=== PATIENT | female | born 2005 | race Caucasian/White ===

== ENCOUNTER 2024-11-14 17:29 | Emergency (ER) | payer OTHER ==
[~2024-11-14] VITALS: Ht 162.6 cm; Wt 63.2 kg
[2024-11-14] MEDS ORDERED: NS 100 ML IV SCH (18:41)
[2024-11-14] MEDS ORDERED: Iohexol 300 - 100 ML VIAL IV ONE (18:41)
[2024-11-14 18:48] LABS: URINE APPEARANCE SLIGHTLY CLOUDY (CLEAR); URINE COLOR YELLOW (YELLOW)
[2024-11-14 18:49] LABS: URINE BILIRUBIN 1+ (NEGATIVE); URINE BLOOD 2+ (NEGATIVE); URINE GLUCOSE NEGATIVE (NEGATIVE); URINE KETONE 3+ (NEGATIVE); URINE LEUKOCYTE ESTERASE NEGATIVE (NEGATIVE); URINE NITRATE NEGATIVE (NEGATIVE); URINE PROTEIN(semi-quant) 1+ (NEGATIVE)
[2024-11-14 18:50] LABS: URINE MUCUS PRESENT (NOT PRESENT)
[2024-11-14] MEDS ORDERED: ZOFRAN ODT4 MG PO (19:48)
[2024-11-14 20:06] VITALS: BP 109/68
== END 2024-11-14 20:03 | disposition home or self-care (01) ==
LOC: ED 17:29
PROVIDERS: Nurse Practitioner Family
DX: K52.9 Noninfective gastroenteritis and colitis, unspecified (principal)
CPT/HCPCS: Q9967